=== PATIENT | male | born 1975 | race Caucasian/White ===

== ENCOUNTER → 2021-10-27 11:19 | Outpatient (BNVA) | payer OTHER, SELFPAY | PROVIDERS: Family Provider Nurse Practitioner Family; PCP Nurse Practitioner Family; Visit Provider Nurse Practitioner Family | DX: R21 Rash and other nonspecific skin eruption (principal); B35.0 Tinea barbae and tinea capitis; K30 Functional dyspepsia | CPT/HCPCS: 86003; 86008 ==

== ENCOUNTER 2022-08-03 11:38 | Outpatient (CLI) | payer OTHER, SELFPAY ==
[2022-08-03 13:06] LABS: HIV 1 & 2 Antibody Non-Reactive (Non-Reactiv); HIV 1 & 2 Antigen Non-Reactive (Non-Reactiv)
[2022-08-03 13:11] LABS: Hepatitis A Antibody IgM Non-Reactive (Nonreactive); Hepatitis B Core AB, Total Non-Reactive (Nonreactive); Hepatitis B Surface AB 23.7 (11.5-1000); Hepatitis B Surface Antigen Non-Reactive (Nonreactive)
[2022-08-03 13:40] LABS: Hepatitis C Virus Antibody Non-Reactive (Nonreactive)
[2022-08-05 13:41] LABS: Quantiferon Mitogen >10.00 IU/mL; Quantiferon Nil 0.01 IU/mL; Quantiferon TB Gold NEGATIVE (NEGATIVE)
== END 2022-08-03 11:39 | disposition home or self-care (01) ==
LOC: LAB 11:46
PROVIDERS: PCP Nurse Practitioner Family; Visit Provider Dermatology
DX: L20.9 Atopic dermatitis, unspecified (principal); Z79.899 Other long term (current) drug therapy
CPT/HCPCS: 36415; 86480; 86705; 86706; 86709; 86803; 87340; 87806